=== PATIENT | male | born 1995 | race Caucasian/White ===

== ENCOUNTER 2021-12-08 10:11 | Emergency (ER) | payer BC, SELFPAY ==
--- NOTE | ~2021-12-08 | CT_ITS ---
EXAMINATION: CT facial bones w con DATE: 12/08/2021 12:26 INDICATION: Facial swelling, forehead abscess TECHNIQUE: Computed tomography (CT) of the facial bones and maxillofacial region was performed withou t intravenous contrast. Automated exposure control and iterative reconstruction technique were employ ed. Exam dose: 281.08 mGy-cm total exam DLP. COMPARISON: None. FINDINGS: There is nonspecific soft tissue thickening in the mid frontal region extending into the re gion of the nasion and orbital areas, more prominent on the left. No subcutaneous emphysema or absces s cavity is evident. No recent nasal bone fracture. The frontozygomatic sutures are intact. Orbital rims and orbital aparicio as well as sinus aparicio are int act. No facial bone fracture or bone destruction. No fracture or dislocation or bone destruction of the mandible. There is a 2 cm polyp or mucous retention cyst in the floor of the left maxillary sinus. There is foc al mild soft tissue thickening along the anteroinferior aspect of the right maxillary sinus. The para nasal sinuses are otherwise normally developed and aerated. Included mastoid air cells are normally d eveloped and aerated bilaterally. Middle and inner ear apparatus are unremarkable. IMPRESSION: Nonspecific mid frontal and left greater than right periorbital soft tissue swelling No facial fracture or bone destruction 2 cm polyp or mucous retention cyst at the floor of the left maxillary sinus Reviewed, dictated and finalized at [facility]. Reviewed, dictated and finalized at [facility]. IMPRESSION: Nonspecific mid frontal and left greater than right periorbital so ft tissue swelling No facial fracture or bone destruction 2 cm polyp or mucous retention cyst at the floor of the left maxillary sinus
[2021-12-08 10:33] VITALS: BP 119/67; PULSE 90; RESP 18; TEMP 36.8; O2SAT 100
--- NOTE | 2021-12-08 11:16 | ED.WOUNDLAC ---
HPI - Wound/Laceration General Chief Complaint: Wound/Laceration Stated Complaint: wound/swelling to face Time Seen by Provider: 12/08/21 10:58 History of Present Illness HPI narrative: 26-year-old male presents the emergency room for evaluation of swelling to his forehead and around his left eye. Patient states he was seen yesterday at [place] emergency room for an abscess to the top of his scalp. Patient states he started him on clindamycin. Reports waking up this morning and noticing soft tissue swelling to the left side of his forehead and brow area. Patient denies fever, denies any vision changes or difficulty. Related Data Allergies Allergy/AdvReac Type Severity Reaction Status Date / Time Sulfa (Sulfonamide AdvReac Nausea and Verified 12/08/21 11:11 Antibiotics) Vomiting sulfamethoxazole AdvReac Nausea Verified 12/08/21 11:11 [From ] trimethoprim [From ] AdvReac Nausea Verified 12/08/21 11:11 Review of Systems Review of Systems: CONSTITUTIONAL: Denies fever, chills, or sweats. EYES: Denies visual changes, redness, or discharge. ENT: Denies rhinorrhea, congestion, sore throat, or otalgia. CARDIOVASCULAR: Denies chest pain, palpitations, or edema. RESPIRATORY: Denies cough or dyspnea. GASTROINTESTINAL: Denies abdominal pain, nausea, vomiting, or diarrhea. GENITOURINARY: Denies dysuria or hematuria. SKIN: Reports swelling to forehead MUSCULOSKELETAL: Denies back pain, joint pain, or myalgia. NEUROLOGIC: Denies headache, numbness, dizziness, or weakness. PSYCHIATRIC: Denies anxiety or depression. Exam Narrative: GENERAL: Well-appearing, well-nourished, no physical limitations, and in no acute distress. HEAD: Normocephalic, atraumatic. EYES: Conjunctivae normal, PERRLA and EOMI. CHEST: Clear to auscultation. No respiratory distress. No wheezes rales or rhonchi. No tenderness. HEART: Regular rate and rhythm. No murmur heard. Normal peripheral pulses. EXTREMITIES: Normal range of motion. No edema. No clubbing or cyanosis SKIN: Draining abscess to the middle of the scalp at the hairline. Soft tissue swelling and erythema extending from the abscess inferiorly and laterally to the brow NEURO: No focal deficits. Alert and oriented x3. MAEW. CN's II-XI intact bilaterally, normal gait PSYCH: Cooperative. Normal mood and affect. Course Vital Signs Vital signs: Vital Signs Temperature 36.8 C 12/08/21 10:33 Pulse Rate 90 12/08/21 10:33 Respiratory Rate 18 12/08/21 10:33 Blood Pressure 119/67 12/08/21 10:33 Pulse Oximetry 100 12/08/21 10:33 Oxygen Delivery Room Air 12/08/21 10:33 Temperature 36.8 C 12/08/21 10:33 Pulse Rate 90 12/08/21 10:33 Respiratory Rate 18 12/08/21 10:33 Blood Pressure 119/67 12/08/21 10:33 Pulse Oximetry 100 12/08/21 10:33 Oxygen Delivery Room Air 12/08/21 10:33 MDM - Wound/Laceration Lab Data Result diagrams: 12/08/21 11:24 Labs: Lab Results 12/08/21 Range/Units 11:24 Sodium 136 L (137-145) mmol/L Potassium 4.2 (3.4-5.0) mmol/L Chloride 101 (98-107) mmol/L Carbon Dioxide 33 H (22-30) mmol/L Anion Gap 2 L (8-16) mmol/L BUN 14 (9-20) mg/dL Creatinine 0.80 (0.7-1.3) mg/dL Estim Creat Clear Calc 136 ml/min Estimated GFR > 60 (59 - ) Glucose 123 H (65-110) mg/dL Calcium 9.0 (8.4-10.2) mg/dL Imaging Data Radiologist's impression: Impressions Face CT 12/08/21 12:27 IMPRESSION: Nonspecific mid frontal and left greater than right periorbital soft tissue swelling No facial fracture or bone destruction 2 cm polyp or mucous retention cyst at the floor of the left maxillary sinus Discharge Plan Discharge Clinical Impression: Abscess, Cellulitis, Cellulitis of face Patient Disposition: Home, Self-Care Condition: Stable Instructions: Antibiotic Form, Cellulitis (ED) Additional Instructions: Continue taking your clindamycin as previo
[2021-12-08 11:47] LABS: Anion Gap 2 mmol/L (8-16); Blood Urea Nitrogen 14 mg/dL (9-20); Carbon Dioxide 33 mmol/L (22-30); Chloride 101 mmol/L (98-107); Estimated CRCL calculation 136 ml/min; Estimated Glomerular Filt Rate > 60; Glucose 123 mg/dL (65-110); Potassium 4.2 mmol/L (3.4-5.0); Sodium 136 mmol/L (137-145)
[2021-12-08 13:15] VITALS: BP 122/72; PULSE 79; RESP 18; O2SAT 100
== END 2021-12-08 13:15 | disposition home or self-care (01) ==
PROVIDERS: Emergency Provider Nurse Practitioner Family
DX: L02.01 Cutaneous abscess of face (principal); L03.213 Periorbital cellulitis
CPT/HCPCS: 36415; 70487; 80048; 99284; Q9967